=== PATIENT | female | born 2000 | race African-American/Black ===

== ENCOUNTER → 2021-07-26 11:22 | Outpatient (CLI) | payer BC, SELFPAY ==
--- NOTE | ~2021-07-26 | US_ITS ---
EXAMINATION: US abdomen limited DATE: 07/26/2021 11:43 INDICATION: Right upper quadrant abdominal pain TECHNIQUE: Multiple grayscale and Doppler ultrasound images of the abdomen were obtained. COMPARISON: None FINDINGS: The pancreatic head and body are normal in appearance. The pancreatic tail is not visualized. The vi sualized proximal to mid inferior vena cava is normal. Liver has normal echogenicity and contour, wit h a smooth surface. No liver lesion identified. No intrahepatic biliary duct dilation suspected. Port al venous flow was seen in the hepatopetal, normal direction and has normal Doppler waveform. The gal lbladder is normal in appearance. There is no cholelithiasis. The common bile duct measures 3 mm, wh ich is normal. Visualized portion of the right kidney demonstrates normal echogenicity with no hydron ephrosis. Sonographic Edwards sign was reported as negative by the shipwright apprentice. IMPRESSION: 1. Normal right upper quadrant ultrasound. Reviewed, dictated and finalized at location B. TER OPERATOR
== END ==
PROVIDERS: PCP Emergency Medicine; Visit Provider Emergency Medicine
DX: R10.9 Unspecified abdominal pain (principal)
CPT/HCPCS: 76705